=== PATIENT | male | born 1955 | race Caucasian/White ===

== ENCOUNTER 2018-05-28 08:34 | Emergency (ER) | payer OTHER ==
[2018-05-28] MEDS ORDERED: NA CHLORIDE 0.9% 1,000 ML ONE (09:29)
[2018-05-28 09:44] LABS: Hematocrit 49.9 % (39.6-49.0); MCH 31.9 pg (27.0-35.0); MCV 94.4 fL (80-100); RBC Red Blood Cell Count 5.28 M/uL (4.33-5.43)
[2018-05-28 09:45] LABS: Absolute Lymphocytes (CBC) 1.8 K/uL (0.7-4.9); Absolute Monocytes 0.4 K/uL (0.1-1.3); Absolute Neutrophil 3.6 K/uL (1.8-8.0); Basophils % 0.3 % (0-1.3); Eosinophils % 2.8 % (0-4.4); Lymphocytes % 30.5 % (15.3-44.8); MPV 10.4 fL (7.6-11.3); Monocytes % 6.7 % (3.3-12.3)
--- NOTE | 2018-05-28 09:58 | RAD REPORT ---
EXAM DESCRIPTION: CT - Head Brain Wo Cont - 05/28/2018 9:49 am CLINICAL HISTORY: DIZZINESS TIA COMPARISON: No comparisons TECHNIQUE: All CT scans are performed using dose optimization technique as appropriate and may inclu de automated exposure control or mA/KV adjustment according to patient size. FINDINGS: No intracranial hemorrhage, hydrocephalus or extra-axial fluid collection.No areas of brai n edema or evidence of midline shift. The paranasal sinuses and mastoids are clear. The calvarium is intact. IMPRESSION: No acute intracranial abnormality.
[2018-05-28 10:11] LABS: Albumin 3.9 g/dL (3.4-5.0); Bilirubin Direct 0.1 mg/dL (0-0.2); Bilirubin Total 0.2 mg/dL (0.2-1.0); CKMB Creatine Kinase MB 2.5 ng/mL (0.3-3.6); Magnesium 2.2 mg/dL (1.8-2.4); Potassium 3.8 mmol/L (3.5-5.1); Protein, Total 7.1 g/dL (6.4-8.2); Protime INR 0.94; Thyroid Stimulating Hormone 1.08 uIU/mL (0.360-3.740)
--- NOTE | 2018-05-28 10:14 | ER ---
Nurse's Notes [facility] Name: Eris Cullen Age: 62 yrs Sex: Male : 1955 Arrival Date: 05/28/2018 Time: 08:40 Bed 8 Private MD: Diagnosis: Weakness;Tobacco abuse counseling;Tobacco use Presentation: 05/28 08:45 Presenting complaint: Patient states: Patient reports that he is here today because he ss has been arguing with his because she has been giving him grief about getting checked out for "mini strokes" patient reports other than feeling "like a 62 year old man and feeling angry" he is fine. Transition of care: patient was not received from another setting of care. Onset of symptoms is unknown. Risk Assessment: Do you want to hurt yourself or someone else? Patient reports no desire to harm self or others. Initial Sepsis Screen: Does the patient meet any 2 criteria? No. Patient's initial sepsis screen is negative. Does the patient have a suspected source of infection? No. Patient's initial sepsis screen is negative. Care prior to arrival: None. 08:45 Method Of Arrival: Ambulatory ss 08:45 Acuity: ART 4 ss Historical: - Allergies: 08:47 PENICILLINS; ss - Home Meds: 08:47 None [Active]; ss - PMHx: 08:47 None; ss - PSHx: 08:47 neck sx; L hand; knee sx; ss - Immunization history:: Adult Immunizations unknown. - Social history:: Smoking status: Patient uses tobacco products, smokes one pack cigarettes per day. - Ebola Screening: : Patient denies exposure to infectious person Patient denies travel to an Ebola-affected area in the 21 days before illness onset. - Family history:: not pertinent. Screenin:58 Abuse screen: Denies threats or abuse. Denies injuries from another. Nutritional sv screening: No deficits noted. Tuberculosis screening: No symptoms or risk factors identified. Fall Risk None identified. Assessment: 08:58 General: Appears in no apparent distress. comfortable, Behavior is cooperative, sv appropriate for age. Pain: Denies pain. Neuro: Level of Consciousness is awake, alert, obeys commands, Oriented to person, place, time, situation, Moves all extremities. Full function Gait is steady, Speech is normal. Respiratory: Respiratory effort is even, unlabored, Respiratory pattern is regular, symmetrical. Derm: Skin is pink, warm \\T\\ dry. 09:45 Reassessment: Patient appears in no apparent distress at this time. Patient and/or hb family updated on plan of care and expected duration. Pain level reassessed. Patient is alert, oriented x 3, equal unlabored respirations, skin warm/dry/pink. 10:45 Reassessment: Patient appears in no apparent distress at this time. No changes from hb previously documented assessment. Patient and/or family updated on plan of care and expected duration. Pain level reassessed. Patient is alert, oriented x 3, equal unlabored respirations, skin warm/dry/pink. Vital Signs: 08:47 BP 144 / 93; Pulse 95; Resp 16; Temp 98.7(TE); Pulse Ox 95% on R/A; Weight 97.52 kg; ss Height 5 ft. 9 in. (175.26 cm); Pain 0/10; 09:35 BP 107 / 82; Pulse 75; Resp 18; Pulse Ox 97% ; sv 10:50 BP 112 / 81; Pulse 69; Resp 18; Pulse Ox 99% ; sv 08:47 Body Mass Index 31.75 (97.52 kg, 175.26 cm) ED Course: 08:40 Patient arrived in ED. mr 08:46 Triage completed. ss 08:47 Arm band placed on right wrist. ss 08:57 Poly Sampson, RN is Primary Nurse. sv 08:58 Patient has correct armband on for positive identification. Bed in low position. Door sv closed. Head of bed elevated. 09:15 Mike Machado MD is Attending Physician. bernarda 09:35 Initial lab(s) drawn, by ma, sent to lab. EKG done, by sterile technician. reviewed by Mike Machado MD. Inserted saline lock: 22 gauge in right antecubital area, using aseptic technique. Blood collected. 09:39 EKG done, by sterile technician. reviewed by Mike Machado MD. at1 09:49 CT Head Brain wo Cont In Process Unspecified. EDMS 09:49 CT completed. Patient tolerated procedure well. Patient moved to CT via wheelchair. [email or web address] Patient moved back from CT. 09:49 Basic Metabolic Panel Sent. sv 09:49 CBC with Diff Sent. sv 09:49 Ckmb Sent. sv 09:49 CPK Sent. sv 09:49 LFT's Sent. sv 10:13 Maco Newell MD is Referral Physician. bernarda 10:28 X-ray completed. Portable x-ray completed in exam room. Patient tolerated procedure jb2 well. 10:30 XRAY Chest (1 view) In Process Unspecified. EDMS 10:45 No provider procedures requiring assistance completed. IV discontinued, intact, hb bleeding controlled, No redness/swelling at site. Pressure dressing applied. Administered Medications: 09:35 Drug: NS 0.9% 1000 ml Route: IV; Rate: 1 bolus; Site: right antecubital; hb 10:30 Follow up: Response: No adverse reaction; IV Status: Completed infusion; IV Intake: sv 1000ml 10:52 Drug: Aspirin Chewable Tablet 324 mg Route: PO; hb 10:52 Follow up: Response: Medication administered at discharge. hb Outcome: 10:13 Discharge ordered by MD. bernarda 10:45 Discharged to home ambulatory, with significant other. hb 10:45 Condition: stable 10:45 Discharge instructions given to patient, significant other, Instructed on discharge instructions, follow up and referral plans. medication usage, Demonstrated understanding of instructions, follow-up care, medications. 11:13 Patient left the ED. hb Signatures: Dispatcher [employer] EDMS Herman Sharma jb1 Poly Sampson, Mike Plummer RN, MD MD cha Rivera, Maria mr Harini, Nima jb2 Kirstie Brennan RN RN Keke Nuñez, head bookkeeper EKG Tat1 Florence Christina RN RN hb Garcia, Jessica j6
--- NOTE | 2018-05-28 10:14 | EDPHYS ---
Physician Documentation [facility] Name: Eris Cullen Age: 62 yrs Sex: Male : 1955 Arrival Date: 05/28/2018 Time: 08:40 Bed 8 Private MD: ED Physician Mike Machado HPI: 05/28 09:23 This 62 yrs old Male presents to ER via Ambulatory with complaints of Doesn't bernarda Feel Right. 09:23 acting different per . Onset: The symptoms/episode began/occurred 5 day(s) ago. bernarda Severity of symptoms: At their worst the symptoms were mild in the emergency department the symptoms are unchanged. The patient has not experienced similar symptoms in the past. Historical: - Allergies: 08:47 PENICILLINS; ss - Home Meds: 08:47 None [Active]; ss - PMHx: 08:47 None; ss - PSHx: 08:47 neck sx; L hand; knee sx; ss - Immunization history:: Adult Immunizations unknown. - Social history:: Smoking status: Patient uses tobacco products, smokes one pack cigarettes per day. - Ebola Screening: : Patient denies exposure to infectious person Patient denies travel to an Ebola-affected area in the 21 days before illness onset. - Family history:: not pertinent. ROS: 09:23 Constitutional: Negative for fever, chills, and weight loss, Eyes: Negative for injury, bernarda pain, redness, and discharge, ENT: Negative for injury, pain, and discharge, Neck: Negative for injury, pain, and swelling, Cardiovascular: Negative for chest pain, palpitations, and edema, Respiratory: Negative for shortness of breath, cough, wheezing, and pleuritic chest pain, Abdomen/GI: Negative for abdominal pain, nausea, vomiting, diarrhea, and constipation, Back: Negative for injury and pain, : Negative for injury, bleeding, discharge, and swelling, MS/Extremity: Negative for injury and deformity, Skin: Negative for injury, rash, and discoloration, Neuro: Negative for headache, weakness, numbness, tingling, and seizure, Psych: Negative for depression, anxiety, suicide ideation, homicidal ideation, and hallucinations, Allergy/Immunology: Negative for hives, rash, and allergies, Endocrine: Negative for neck swelling, polydipsia, polyuria, polyphagia, and marked weight changes. Exam: 09:23 Constitutional: This is a well developed, well nourished patient who is awake, alert, bernarda and in no acute distress. Head/Face: Normocephalic, atraumatic. Eyes: Pupils equal round and reactive to light, extra-ocular motions intact. Lids and lashes normal. Conjunctiva and sclera are non-icteric and not injected. Cornea within normal limits. Periorbital areas with no swelling, redness, or edema. ENT: Nares patent. No nasal discharge, no septal abnormalities noted. Tympanic membranes are normal and external auditory canals are clear. Oropharynx with no redness, swelling, or masses, exudates, or evidence of obstruction, uvula midline. Mucous membranes moist. Neck: Trachea midline, no thyromegaly or masses palpated, and no cervical lymphadenopathy. Supple, full range of motion without nuchal rigidity, or vertebral point tenderness. No Meningismus. Chest/axilla: Normal chest wall appearance and motion. Nontender with no deformity. No lesions are appreciated. Cardiovascular: Regular rate and rhythm with a normal S1 and S2. No gallops, murmurs, or rubs. Normal PMI, no JVD. No pulse deficits. Respiratory: Lungs have equal breath sounds bilaterally, clear to auscultation and percussion. No rales, rhonchi or wheezes noted. No increased work of breathing, no retractions or nasal flaring. Abdomen/GI: Soft, non-tender, with normal bowel sounds. No distension or tympany. No guarding or rebound. No evidence of tenderness throughout. Back: No spinal tenderness. No costovertebral tenderness. Full range of motion. Skin: Warm, dry with normal turgor. Normal color with no rashes, no lesions, and no evidence of cellulitis. MS/ Extremity: Pulses equal, no cyanosis. Neurovascular intact. Full, normal range of motion. Neuro: Awake and alert, GCS 15, oriented to person, place, time, and situation. Cranial nerves II-XII grossly intact. Motor strength 5/5 in all extremities. Sensory grossly intact. Cerebellar exam normal. Normal gait. Psych: Awake, alert, with orientation to person, place and time. Behavior, mood, and affect are within normal limits. Vital Signs: 08:47 BP 144 / 93; Pulse 95; Resp 16; Temp 98.7(TE); Pulse Ox 95% on R/A; Weight 97.52 kg; ss Height 5 ft. 9 in. (175.26 cm); Pain 0/10; 09:35 BP 107 / 82; Pulse 75; Resp 18; Pulse Ox 97% ; sv 10:50 BP 112 / 81; Pulse 69; Resp 18; Pulse Ox 99% ; sv 08:47 Body Mass Index 31.75 (97.52 kg, 175.26 cm) ss MDM: 09:15 Patient medically screened. [facility] 09:25 Data reviewed: vital signs, nurses notes, lab test result(s), EKG, radiologic studies, [facility] CT scan, plain films. 05/28 09:16 Order name: Basic Metabolic Panel [facility] 05/28 09:16 Order name: CBC with Diff [facility] 05/28 09:16 Order name: Ckmb [facility] 05/28 09:16 Order name: CPK [facility] 05/28 09:16 Order name: LFT's [facility] 05/28 09:16 Order name: Magnesium; Complete Time: 10:12 [facility] 05/28 09:16 Order name: NT PRO-BNP; Complete Time: 10:12 [facility] 05/28 09:16 Order name: PT-INR; Complete Time: 10:34 [facility] 05/28 09:16 Order name: Ptt, Activated; Complete Time: 10:34 [facility] 05/28 09:16 Order name: Troponin (emerg Dept Use Only); Complete Time: 10:12 [facility] 05/28 09:16 Order name: Lipase; Complete Time: 10:12 [facility] 05/28 09:16 Order name: TSH; Complete Time: 10:12 [facility] 05/28 09:17 Order name: Basic Metabolic Panel; Complete Time: 10:12 [facility] 05/28 09:16 Order name: XRAY Chest (1 view); Complete Time: 10:58 [facility] 05/28 09:16 Order name: EKG; Complete Time: 09:17 [facility] 05/28 09:16 Order name: Cardiac monitoring; Complete Time: 09:35 [facility] 05/28 09:16 Order name: EKG - Nurse/Tech; Complete Time: 09:35 [facility] 05/28 09:16 Order name: IV Saline Lock; Complete Time: 09:35 [facility] 05/28 09:16 Order name: Labs collected and sent; Complete Time: 09:35 [facility] 05/28 09:16 Order name: O2 Per Protocol; Complete Time: 09:35 [facility] 05/28 09:16 Order name: O2 Sat Monitoring; Complete Time: 09:35 [facility] 05/28 09:17 Order name: CBC with Automated Diff; Complete Time: 09:59 [facility] 05/28 09:17 Order name: CKMB Creatine Kinase MB; Complete Time: 10:12 [facility] 05/28 09:17 Order name: Creatine Phosphokinase; Complete Time: 10:12 [facility] 05/28 09:17 Order name: Liver (Hepatic) Function; Complete Time: 10:12 [facility] 05/28 09:21 Order name: CT Head Brain wo Cont; Complete Time: 10:12 [facility] Administered Medications: 09:35 Drug: NS 0.9% 1000 ml Route: IV; Rate: 1 bolus; Site: right antecubital; hb 10:30 Follow up: Response: No adverse reaction; IV Status: Completed infusion; IV Intake: sv 1000ml 10:52 Drug: Aspirin Chewable Tablet 324 mg Route: PO; hb 10:52 Follow up: Response: Medication administered at discharge. hb Disposition: 05/28/18 10:13 Discharged to Home. Impression: Weakness, Tobacco abuse counseling, Tobacco use. - Condition is Stable. - Discharge Instructions: Smoking Hazards, Stroke Prevention, Weakness, Fatigue, Health Maintenance, Male, Steps to Quit Smoking, [id number], Weakness, [id number], Aspirin and Your Heart, Stroke Prevention, Ckyz-uc-[id number]. - Medication Reconciliation Form, Thank You Letter, Antibiotic Education, Prescription Opioid Use form. - Follow up: Private Physician; When: 2 - 3 days; Reason: Recheck today's complaints, Continuance of care, Re-evaluation by your physician. Follow up: Maco Newell; When: 2 - 3 days; Reason: Recheck today's complaints, Re-evaluation by your physician. - Problem is new. - Symptoms have improved. Signatures: Dispatcher [employer] EDLA Mike Machado MD MD cha Smirch, Shelby, Florence Hunter RN, RN RN hb Verde, Stephanie RN sv Corrections: (The following items were deleted from the chart) 11:13 10:13 05/28/2018 10:13 Discharged to Home. Impression: Weakness; Tobacco abuse counseling; Tobacco use. Condition is Stable. Discharge Instructions: Smoking Hazards, Stroke Prevention, Weakness, Fatigue, Health Maintenance, Male, Steps to Quit Smoking, [id number], Weakness, [id number], Aspirin and Your Heart, Stroke Prevention, [id number]. Forms are Medication Reconciliation Form, Thank You Letter, Antibiotic Education, Prescription Opioid Use. Follow up: Private Physician; When: 2 - 3 days; Reason: Recheck today's complaints, Continuance of care, Re-evaluation by your physician. Follow up: Maco Newell; When: 2 - 3 days; Reason: Recheck today's complaints, Re-evaluation by your physician. Problem is new. Symptoms have improved. bernarda
[2018-05-28] MEDS ORDERED: ASPIRIN 81 MG CHEWABLE TABLET ONE (10:37)
--- NOTE | 2018-05-28 10:39 | RAD REPORT ---
EXAM DESCRIPTION: RAD - Chest Single View - 05/28/2018 10:30 am CLINICAL HISTORY: COUGH Chest pain. COMPARISON: No comparisons FINDINGS: Portable technique limits examination quality. The lungs are grossly clear. The heart is normal in size. No displaced fractures. IMPRESSION: No acute intrathoracic process suspected.
--- NOTE | 2018-05-29 06:08 | EKG ---
Test Date: 2018-05-28 Test Time: 09:27:09 [employer] Associate: JOHNIE MEASUREMENT RESULTS: Intervals: Rate: 75 OK: 182 QRSD: 90 QT: 396 QTc: 442 Plush: P: 49 OK: 182 QRS: -13 T: 15 INTERPRETIVE STATEMENTS: Normal sinus rhythm Inferior infarct, age undetermined Abnormal ECG No previous ECG available for comparison Electronically Signed On 05-29-18 06:06:25 CDT by Marcial Donnelly
== END 2018-05-28 11:13 | disposition home or self-care (01) ==
LOC: ER 08:34
DX: R53.1 Weakness (principal); Z72.0 Tobacco use; Z71.6 Tobacco abuse counseling; Z88.0 Allergy status to penicillin
CPT/HCPCS: 36415; 70450; 71045; 80048; 80076; 82550; 82553; 83690; 83735; 83880; 84443; 84484; 85025; 85610; 85730; 93005; 96360; 99284; J7030